=== PATIENT | male | born 1955 | race Caucasian/White ===

== ENCOUNTER 2021-07-23 08:00 | Outpatient (CLI) | payer MEDICARE, BC ==
[2021-07-23 16:25] LABS: CALCIUM 10.6 mg/dL (8.5-10.3); CREATININE 1.1 mg/dL (0.6-1.2)
[2021-07-23 16:40] LABS: PSA TOTAL 5.02 ng/mL (0.000-2.000)
== END 2021-07-23 08:01 | disposition home or self-care (01) ==
LOC: LAB.R 08:00
PROVIDERS: ATTEND Internal Medicine
DX: E11.9 Type 2 diabetes mellitus without complications (principal); R97.20 Elevated prostate specific antigen [PSA]; I10 Essential (primary) hypertension; Z79.899 Other long term (current) drug therapy
CPT/HCPCS: 36415; 80048; 81599; 83036; 84153

== ENCOUNTER 2023-05-23 07:37 | Outpatient (CLI) | payer MEDICARE ==
--- NOTE | 2023-05-23 13:26 | Ultrasound Report ---
PROCEDURE: Aorta Screening INDICATIONS: FAM HIST OF AAA TECHNIQUE: Real time scanning was performed of the aorta and iliac arteries, with image documentatio n. COMPARISON: None. FINDINGS: Aorta: Proximal aortic diameter measures 2.2 cm. Mid-aorta measures 2.2 cm. Distal aortic diameter is 2.0 cm. Iliac arteries: Right common iliac artery measures 1.5 cm. Left common iliac artery measures 1.4 cm . IMPRESSION: No aneurysmal dilatation or ectasia of the abdominal aorta or iliac arteries. Recommended intervals for follow-up imaging of ectatic aortas and abdominal aortic aneurysms, per ACR consensus guidelines: 2.5-2.9 cm: 5 years 3.0-3.4 cm: 3 years 3.5-3.9 cm: 2 years 4.0-4.4 cm: 1 year 4.5-4.9 cm: 6 months + endovascular referral 5.0-5.5 cm: 3-6 months + endovascular referral Reviewed by: Shana Eli MD on 05/23/2023 1:25 PM PST Approved by: Shana Eli MD on 05/23/2023 1:25 PM PST Station ID: [id number]
--- NOTE | 2023-05-23 13:30 | CT Report ---
PROCEDURE: Chest WO INDICATIONS: PULMONARY NODULE TECHNIQUE: A CT scan of the chest was performed. Intravenous contrast media was not administered. Images were re corded and evaluated at appropriate window settings. Reformats: axial MIP of the chest, coronal and s agittal. For radiation dose reduction, the following was used: automated exposure control, adjustment of mA and/or kV according to patient size. COMPARISON: None. FINDINGS: Image quality: Diagnostic. Chest wall and lower neck: No thyroid nodule which requires sonographic follow up. No axillary or sup raclavicular adenopathy by size. Lungs and pleura: No consolidation. No pleural effusions. No pneumothorax. There is a 5 mm right api tank pulmonary nodule series 4/image 17). No other suspicious pulmonary nodules. Mediastinum: Heart size is normal. No pericardial effusion. No large vessel abnormality. No mediastin al adenopathy by size criteria. Bones: No aggressive osseous abnormality. Upper Abdomen: There is an intermediate density exophytic cystic lesion off the upper pole of the rig ht kidney which is incompletely characterized. IMPRESSION: 1. 5 mm right apical pulmonary nodule. Optional [address] follow-up in a high-risk patient. 2. Exophytic intermediate density lesion off the upper pole of the right kidney which most likely rep resents a hyperdense cyst but a mass cannot be excluded. Consider nonemergent renal ultrasound furthe r characterize this finding. Reviewed by: Shana Eli MD on 05/23/2023 1:28 PM PST Approved by: Shana Eli MD on 05/23/2023 1:28 PM PST Station ID: [id number]
== END 2023-05-23 07:38 | disposition home or self-care (01) ==
LOC: DI 07:37
PROVIDERS: ATTEND Internal Medicine
DX: Z13.6 Encounter for screening for cardiovascular disorders (principal)